=== PATIENT | female | born 1935 | race Caucasian/White ===

== ENCOUNTER → 2018-04-23 | Outpatient (CLI) | payer MEDICARE | LOC: MAMMO 10:05 | DX: Z12.31 Encounter for screening mammogram for malignant neoplasm of breast (principal) ==

== ENCOUNTER 2018-06-13 10:00 | Outpatient (RCR) | payer MEDICARE | END 2018-06-13 10:30 | disposition home or self-care (01) | LOC: PT 10:00 | DX: M25.511 Pain in right shoulder (principal); M25.512 Pain in left shoulder | CPT/HCPCS: G8985-GP ==

== ENCOUNTER → 2018-08-05 | Outpatient (CLI) | payer MEDICARE | LOC: VAS 16:24 → RAD 16:45 → VAS 16:45 | DX: I34.8 Other nonrheumatic mitral valve disorders (principal) ==

== ENCOUNTER 2018-08-19 15:57 | Emergency (ER) | payer MEDICARE ==
[2018-08-19 17:05] LABS: HEMATOCRIT 32.5 % (37.0-47.0); HEMOGLOBIN 10.7 g/dL (12.5-16.0); MEAN CELL VOLUME 94 fl (78-100); MEAN CORPUSCULAR HEMOGLOBIN 31 pg (27-31); MEAN CORPUSCULAR HGB CONC 33 g/dL (33-37); PLATELET COUNT 297 K/mm3 (130-400); RED BLOOD COUNT 3.46 M/mm3 (4.10-5.30); RED CELL DISTRIBUTION WIDTH 13.7 % (11.5-14.5); WHITE BLOOD COUNT 9.1 K/mm3 (4.8-10.8)
[2018-08-19] MEDS ORDERED: ASPIR LOW81 MG PO (17:18)
[2018-08-19] MEDS ORDERED: [UNRECOGNIZED DRUG - REMARK] PO (17:18)
[2018-08-19] MEDS ORDERED: AMLODIPINE BESYL5 MG PO (17:18)
[2018-08-19] MEDS ORDERED: LOSARTAN POTAS100 MG PO (17:19)
[2018-08-19] MEDS ORDERED: METHENAMINE HIPP1 GM PO (17:19)
[2018-08-19] MEDS ORDERED: GOOD NEIGHBOR P1 T33 PO (17:19)
[2018-08-19] MEDS ORDERED: PRAVASTATIN SOD10 MG PO (17:20)
[2018-08-19] MEDS ORDERED: TOLTERODINE TART4 MG PO (17:20)
[2018-08-19] MEDS ORDERED: OMEPRAZOLE D/R20 MG PO (17:20)
[2018-08-19] MEDS ORDERED: TRAMADOL 50 MG TAB PO (17:20)
[2018-08-19 17:21] LABS: ALBUMIN 4.1 g/dL (3.5-5.0); CALCIUM 10.4 mg/dL (8.4-10.2); POTASSIUM 4.2 mmol/L (3.6-5.0); TOTAL BILIRUBIN 2.4 mg/dL (0.2-1.3); TOTAL PROTEIN 6.9 g/dL (6.3-8.2)
[2018-08-19 17:32] LABS: BAND 1 % (0-10); LYMPHOCYTE 7 % (20-51); MONOCYTE 3 % (3-10); NEUTROPHILS 89 % (42-75)
[2018-08-19 18:44] LABS: PH-URINE 5.5 (5.0 - 8.0); URINE APPEARANCE CLEAR; URINE BILIRUBIN NEGATIVE (NEGATIVE); URINE BLOOD NEGATIVE (NEGATIVE); URINE COLOR YELLOW; URINE GLUCOSE NEGATIVE (NEGATIVE); URINE KETONE NEGATIVE (NEGATIVE); URINE LEUKOCYTE ESTERASE NEGATIVE (NEGATIVE); URINE NITRATE NEGATIVE (NEGATIVE); URINE PROTEIN(semi-quant) 1+ mg/dL (NEGATIVE); URINE UROBILINOGEN NORMAL (NORMAL); URINE WBC 0-1 /hpf (0-3)
[2018-08-19 19:06] VITALS: BP 145/66
[2018-08-26] MEDS ORDERED: CEFDINIR300 MG PO (17:30)
== END 2018-08-19 19:14 | disposition home or self-care (01) ==
LOC: ED 15:57
PROVIDERS: Nurse Practitioner Primary Care
DX: R10.11 Right upper quadrant pain (principal); N28.1 Cyst of kidney, acquired; R07.89 Other chest pain; R50.9 Fever, unspecified
CPT/HCPCS: Q9967

== ENCOUNTER → 2018-10-07 | Outpatient (CLI) | payer MEDICARE ==
[2018-08-26 18:09] VITALS: BP 153/79
[~2018-10-07] MED LIST: AMLODIPINE BESYL5 MG PO; ASPIR LOW81 MG PO; CEFDINIR300 MG PO; GOOD NEIGHBOR P1 T33 PO; LOSARTAN POTAS100 MG PO; METHENAMINE HIPP1 GM PO; OMEPRAZOLE D/R20 MG PO; PRAVASTATIN SOD10 MG PO; TOLTERODINE TART4 MG PO; TRAMADOL 50 MG TAB PO; [UNRECOGNIZED DRUG - REMARK] PO
== END ==
LOC: RAD 10:38
DX: R22.1 Localized swelling, mass and lump, neck (principal)
CPT/HCPCS: Q9967